=== PATIENT | male | born 1980 | race American Indian/Alaskan Native ===

== ENCOUNTER 2019-08-26 05:54 | Emergency (ER) | payer BC, OTHER ==
[2019-08-26] MEDS ORDERED: Adenosine 6 MG/2 ML SDV IVPUSH ONE ×3 (06:06→06:16)
[2019-08-26] MEDS ORDERED: Adenosine 6 MG/2 ML SDV ONE (06:08)
[2019-08-26] MEDS ORDERED: Sodium Chloride 0.9% 1,000 ML IV SCH (06:09)
[2019-08-26] MEDS ORDERED: Adenosine 12 MG/4 ML SDV ONE ×2 (06:12→06:16)
--- NOTE | 2019-08-26 06:25 | EDM.PDOC ---
ED HPI GENERAL MEDICAL PROBLEM - General Chief Complaint: Cardiovascular Problem Stated Complaint: RAPID HEARTBEAT Time Seen by Provider: 08/26/19 06:06 Source of Information: Reports: Patient History Limitations: Reports: No Limitations - History of Present Illness INITIAL COMMENTS - FREE TEXT/NARRATIVE: This 39 yo male patient reports to the ED due to an increased heartrate. The patient reports his symptoms started at about 2130 last night. The patient reports similar symptoms in the past, but these episodes had been self limiting during previous episodes. The patient reports he has not had to have medications and has not had his heart checked out after these episodes. The patient admits to drinking caffeinated drinks as well as to vaping. The patient denies any recent drug or ETOH use. Onset Date: 08/25/19 Onset Time: 21:30 Duration: Constant Location: Reports: Chest Quality: Reports: Other Severity: Moderate Improves with: Reports: None Worsens with: Reports: None Context: Reports: Other Associated Symptoms: Reports: Other (Rapid heart rate dizziness) Left Anterior Chest Pain Score (Numeric/FACES): 2 - Related Data Allergies Allergy/AdvReac Type Severity Reaction Status Date / Time No Known Allergies Allergy Verified 08/26/19 06:07 Home Meds: Home Meds . [No Known Home Meds] 01/24/15 [History] Social & Family History - Family History Family Medical History: Noncontributory - Tobacco Use Smoking Status *Q: Current Every Day Smoker Years of Tobacco use: 20 Packs/Tins Daily: 0 Second Hand Smoke Exposure: Yes - Caffeine Use Caffeine Use: Reports: Coffee, Energy Drinks, Soda, Tea - Recreational Drug Use Recreational Drug Use: No ED ROS GENERAL - Review of Systems Review Of Systems: ROS reveals no pertinent complaints other than HPI. ED EXAM, GENERAL - Physical Exam Exam: See Below Exam Limited By: No Limitations General Appearance: Alert, WD/WN, Anxious, Moderate Distress Eye Exam: Bilateral Eye: EOMI, Normal Inspection, PERRL Ears: Normal External Exam, Normal Canal, Hearing Grossly Normal, Normal TMs Nose: Normal Inspection, Normal Mucosa, No Blood Throat/Mouth: Normal Inspection, Normal Lips, Normal Teeth, Normal Gums, Normal Oropharynx, Normal Voice, No Airway Compromise Head: Atraumatic, Normocephalic Neck: Normal Inspection, Supple, Non-Tender, Full Range of Motion Respiratory/Chest: No Respiratory Distress, Lungs Clear, Normal Breath Sounds, No Accessory Muscle Use, Chest Non-Tender Cardiovascular: No Edema, No Gallop, No JVD, No Murmur, No Rub, Tachycardia GI/Abdominal: Normal Bowel Sounds, Soft, Non-Tender, No Organomegaly, No Distention, No Abnormal Bruit, No Mass (Male) Exam: Deferred Rectal (Males) Exam: Deferred Back Exam: Normal Inspection, Full Range of Motion, NT Extremities: Normal Inspection, Normal Range of Motion, Non-Tender, Normal Capillary Refill, No Pedal Edema Neurological: Alert, Oriented, CN II-XII Intact, Normal Cognition, Normal Gait, Normal Reflexes, No Motor/Sensory Deficits Psychiatric: Normal Affect, Normal Mood Skin Exam: Warm, Dry, Intact, Normal Color, No Rash Lymphatic: No Adenopathy Course - Vital Signs Last Recorded V/S: Last Vital Signs Temp 36.3 C 08/26/19 06:32 Pulse 95 08/26/19 06:32 Resp 12 08/26/19 06:32 BP 113/63 08/26/19 06:32 Pulse Ox 98 08/26/19 06:32 - Orders/Labs/Meds Orders: Active Orders 24 hr Category Date Time Status EKG Documentation Completion [RC] URGENT Care 08/26/19 06:02 Active EKG Documentation Completion [RC] URGENT Care 08/26/19 06:20 Ordered Chest 1V Frontal [CR] Urgent Exams 08/26/19 06:03 Ordered Sodium Chloride 0.9% [Normal Saline] 1,000 ml Med 08/26/19 06:09 Active IV ASDIRECTED Medication Orders Sodium Chloride (Normal Saline) 1,000 mls @ 999 mls/hr IV ASDIRECTED GINI Last Admin: 08/26/19 06:09 Dose: 999 mls/hr Labs: Laboratory Tests 08/26/19 08/26/19 Range/Units 06:03 06:03 WBC 15.4 H (5.0-10.0) 10^3/uL RBC 5.58 (4.6-6.2) 10^6/uL Hgb 16.4 (14.0-18.0) g/dL Hct 47.7 (40.0-54.0) % MCV 85.5 (80-100) fL MCH 29.4 (27.0-34.0) pg MCHC 34.4 (33.0-35.0) g/dL Plt Count 228 (150-450) 10^3/uL Neut % (Auto) 64.2 (42.2-75.2) % Lymph % (Auto) 25.7 (20.5-50.1) % [place] % (Auto) 6.0 (2-8) % Eos % (Auto) 3.8 H (1.0-3.0) % Baso % (Auto) 0.3 (0.0-1.0) % Sodium 140 (135-145) mmol/L Potassium 4.1 (3.6-5.0) mmol/L Chloride 105 (101-111) mmol/L Carbon Dioxide 24.0 (21.0-31.0) mmol/L Anion Gap 15.1 BUN 19 H (7-18) mg/dL Creatinine 1.2 (0.6-1.3) mg/dL Est Cr Clr Drug Dosing 86.28 mL/min Estimated GFR (MDRD) > 60 BUN/Creatinine Ratio 15.83 Glucose 102 (74-105) mg/dL Calcium 8.7 (8.4-10.2) mg/dl Total Bilirubin 0.7 (0.2-1.0) mg/dL AST 21 (10-42) IU/L ALT 29 (10-60) IU/L Alkaline Phosphatase 64 (42-121) IU/L Troponin I 0.11 H* (0.00-0.02) ng/ml Total Protein 7.0 (6.7-8.2) g/dl Albumin 3.8 (3.2-5.5) g/dl Globulin 3.2 Albumin/Globulin Ratio 1.19 Meds: Medications Generic Name Dose Route Start Last Admin Trade Name Freq PRN Reason Stop Dose Admin Sodium Chloride 1,000 mls @ 999 mls/hr 08/26/19 06:09 08/26/19 06:09 Normal Saline IV 999 mls/hr ASDIRECTED GINI Administration Discontinued Medications Generic Name Dose Route Start Last Admin Trade Name Freq PRN Reason Stop Dose Admin Adenosine 6 mg 08/26/19 06:06 08/26/19 06:09 Adenocard IVPUSH 08/26/19 06:07 6 mg NOW ONE Administration Adenosine Confirm 08/26/19 06:08 08/26/19 06:17 Adenocard Administered 08/26/19 06:09 Not Given Dose 6 mg .ROUTE .STK-MED ONE Adenosine 12 mg 08/26/19 06:12 08/26/19 06:13 Adenocard IVPUSH 08/26/19 06:13 12 mg NOW ONE Administration Adenosine Confirm 08/26/19 06:12 08/26/19 06:17 Adenocard Administered 08/26/19 06:13 Not Given Dose 12 mg .ROUTE .STK-MED ONE Adenosine 12 mg 08/26/19 06:16 08/26/19 06:18 Adenocard IVPUSH 08/26/19 06:17 12 mg NOW ONE Administration Adenosine Confirm 08/26/19 06:16 08/26/19 06:26 Adenocard Administered 08/26/19 06:17 Not Given Dose 12 mg .ROUTE .STK-MED ONE Departure - Departure Time of Disposition: 07:12 Disposition: DC/Tfer to [facility] 02 Reason for Transfer *Q: Other Condition: Fair Clinical Impression: Elevated troponin I level Forms: Interfacility Transfer EMTALA Care Plan Goals: Discussed the patient's history, examination, lab, EKG and treatments with Dr. Sotelo. Dr. Sotelo accepted the patient for continued evaluation and management at [facility] in [place]. The patient will be transported by [facility]. - My Orders Last 24 Hours: My Active Orders 08/26/19 06:02 EKG Documentation Completion [RC] URGENT 08/26/19 06:03 Chest 1V Frontal [CR] Urgent 08/26/19 06:09 Sodium Chloride 0.9% [Normal Saline] 1,000 ml IV ASDIRECTED 08/26/19 06:20 EKG Documentation Completion [RC] URGENT - Assessment/Plan Last 24 Hours: My Active Orders 08/26/19 06:02 EKG Documentation Completion [RC] URGENT 08/26/19 06:03 Chest 1V Frontal [CR] Urgent 08/26/19 06:09 Sodium Chloride 0.9% [Normal Saline] 1,000 ml IV ASDIRECTED 08/26/19 06:20 EKG Documentation Completion [RC] URGENT
[2019-08-26 06:32] LABS: ANION GAP 15.1; CHLORIDE,CL 105 mmol/L (101-111); SODIUM,NA 140 mmol/L (135-145)
[2019-08-26 06:33] VITALS: PULSE 95
[2019-08-26 07:26] VITALS: BP 102/75
== END 2019-08-26 07:25 | disposition left against medical advice (07) ==
LOC: DL.ED 05:54
DX: R79.89 Other specified abnormal findings of blood chemistry (principal); F17.210 Nicotine dependence, cigarettes, uncomplicated
CPT/HCPCS: 36415; 71045; 80053; 84484; 85025; 93005; 96361; 96374; 99285; J0153; J7030

== ENCOUNTER 2020-11-06 08:27 | Emergency (ER) | payer OTHER ==
[2020-11-06 08:52] VITALS: BP 113/84; PULSE 79
[2020-11-06] MEDS ORDERED: Sodium Chloride 0.9% 1,000 ML IV ONE (08:57)
[2020-11-06] MEDS ORDERED: Ondansetron 4 MG/2 ML SDV IV ONE (09:16)
--- NOTE | 2020-11-06 09:21 | EDM.PDOC ---
ED HPI GENERAL MEDICAL PROBLEM - General Chief Complaint: Respiratory Problem Stated Complaint: covid symptoms + in jun. tested+ 1wk Time Seen by Provider: 11/06/20 09:00 Source of Information: Reports: Patient, RN, RN Notes Reviewed History Limitations: Reports: No Limitations - History of Present Illness INITIAL COMMENTS - FREE TEXT/NARRATIVE: Patient is a 40-year-old male who presents to ER with complaint of body aches, fever and chills, nausea, vomiting, diarrhea for the past 1 week. Patient states symptoms began last Saturday. States he began with body aches, progressed throughout the week with fever and chills. The last 2 days he has had nausea, vomiting and diarrhea. States he has been coughing quite a bit, gets muscle spasms in his back with coughing. States he has been coughing up phlegm, yellow in color, but blood-tinged from time to time. States that has been occurring since yesterday. Patient states he did test positive for Covid in June. Sta wander 3 others in his household tested positive for Covid at that time. 1 week ago his tested positive for Covid as well as 3 other children in the house. Patient states he does Juul (vape), has for about 2 years, and does so quite frequently throughout the day. Patient states he has not done this since Saturday, and has been using nicotine lozenges. Patient states he does not drink alcohol, and denies any other past medical health history. Patient states his anxiety has been high the last couple of days with coughing, feeling short of breath with cough, and the blood tinged sputum. States he does not generally have troubles with anxiety. Onset: Gradual Onset Date: 10/30/20 - Related Data Allergies Allergy/AdvReac Type Severity Reaction Status Date / Time No Known Allergies Allergy Verified 11/06/20 08:43 Home Meds: Home Meds . [No Known Home Meds] 01/24/15 [History] Past Medical History - Past Health History Medical/Surgical History: Denies Medical/Surgical History - Infectious Disease History Infectious Disease History: Reports: Novel Coronavirus Social & Family History - Family History Family Medical History: No Pertinent Family History - Tobacco Use Tobacco Use Status *Q: Current Every Day Tobacco User Years of Tobacco use: 20 Packs/Tins Daily: 0.5 Tobacco Use Comment: Hasn't smoked since Sat. - Caffeine Use Caffeine Use: Reports: Coffee, Energy Drinks, Soda, Tea ED ROS GENERAL - Review of Systems Review Of Systems: Comprehensive ROS is negative, except as noted in HPI. ED EXAM, GENERAL - Physical Exam Exam: See Below Exam Limited By: No Limitations General Appearance: Alert, WD/WN, No Apparent Distress Eye Exam: Bilateral Eye: EOMI, Normal Inspection Ears: Normal External Exam, Hearing Grossly Normal Nose: Normal Inspection Throat/Mouth: Normal Inspection, Normal Voice, No Airway Compromise Head: Atraumatic, Normocephalic Neck: Normal Inspection, Supple, Non-Tender, Full Range of Motion Respiratory/Chest: No Respiratory Distress, No Accessory Muscle Use, Chest Non- Tender, Decreased Breath Sounds (right base), Crackles (left base) Cardiovascular: Normal Peripheral Pulses, Regular Rate, Rhythm, No Edema, No Gallop, No JVD, No Murmur, No Rub Peripheral Pulses: 2+: Radial (L), Radial (R) GI/Abdominal: Normal Bowel Sounds, Soft, Non-Tender, No Organomegaly, No Di stention (Male) Exam: Deferred Rectal (Males) Exam: Deferred Back Exam: Normal Inspection, Full Range of Motion, NT Extremities: Normal Inspection, Normal Range of Motion, Non-Tender, Normal Capillary Refill, No Pedal Edema Neurological: Alert, Oriented, CN II-XII Intact, Normal Cognition, Normal Gait, Normal Reflexes, No Motor/Sensory Deficits Psychiatric: Normal Affect, Normal Mood, Anxious Skin Exam: Warm, Dry, Intact, Normal Color, No Rash Lymphatic: No Adenopathy Course - Vital Signs Last Recorded V/S: Last Vital Signs Temp 99.3 F 11/06/20 08:37 Pulse 79 11/06/20 08:37 Resp 20 11/06/20 08:37 BP 113/84 11/06/20 08:37 Pulse Ox 97 11/06/20 08:37 - Orders/Labs/Meds Orders: Active Orders 24 hr Category Date Time Status Isolation [COMM] Routine Oth 11/06/20 08:57 Active Labs: Laboratory Tests 11/06/20 11/06/20 11/06/20 Range/Units 09:04 09:23 09:23 WBC 4.8 L (5.0-10.0) 10^3/uL RBC 5.00 (4.6-6.2) 10^6/uL Hgb 14.0 D (14.0-18.0) g/dL Hct 40.9 (40.0-54.0) % MCV 81.8 D (80-100) fL MCH 28.0 (27.0-34.0) pg MCHC 34.2 (33.0-35.0) g/dL Plt Count 169 (150-450) 10^3/uL Neut % (Auto) 84.7 H (42.2-75.2) % Lymph % (Auto) 11.6 L (20.5-50.1) % [place] % (Auto) 2.9 (2-8) % Eos % (Auto) 0.6 L (1.0-3.0) % Baso % (Auto) 0.2 (0.0-1.0) % Sodium 133 L (136-145) mmol/L Potassium 3.6 (3.5-5.1) mmol/L Chloride 101 (98-107) mmol/L Carbon Dioxide 18 L (21-32) mmol/L Anion Gap 17.6 H (7-13) mEq/L BUN 17 (7-18) mg/dL Creatinine 1.23 (0.70-1.30) mg/dL Est Cr Clr Drug Dosing 83.33 mL/min Estimated GFR (MDRD) > 60 BUN/Creatinine Ratio 13.8 (No establ ref range) Glucose 114 H (74-99) mg/dL Calcium 8.3 L (8.5-10.1) mg/dL Total Bilirubin 1.0 (0.2-1.0) mg/dL AST 37 (15-37) U/L ALT 28 (16-63) U/L Alkaline Phosphatase 50 (46-116) U/L C-Reactive Protein (0.0-0.9) mg/dL Total Protein 6.9 (6.4-8.2) g/dL Albumin 3.1 L (3.4-5.0) g/dL Globulin 3.8 Albumin/Globulin Ratio 0.82 SARS-CoV-2 RNA (FRANKI) Negative (NEGATIVE) 11/06/20 Range/Units 09:23 WBC (5.0-10.0) 10^3/uL RBC (4.6-6.2) 10^6/uL Hgb (14.0-18.0) g/dL Hct (40.0-54.0) % MCV (80-100) fL MCH (27.0-34.0) pg MCHC (33.0-35.0) g/dL Plt Count (150-450) 10^3/uL Neut % (Auto) (42.2-75.2) % Lymph % (Auto) (20.5-50.1) % [place] % (Auto) (2-8) % Eos % (Auto) (1.0-3.0) % Baso % (Auto) (0.0-1.0) % Sodium (136-145) mmol/L Potassium (3.5-5.1) mmol/L Chloride (98-107) mmol/L Carbon Dioxide (21-32) mmol/L Anion Gap (7-13) mEq/L BUN (7-18) mg/dL Creatinine (0.70-1.30) mg/dL Est Cr Clr Drug Dosing mL/min Estimated GFR (MDRD) BUN/Creatinine Ratio (No establ ref range) Glucose (74-99) mg/dL Calcium (8.5-10.1) mg/dL Total Bilirubin (0.2-1.0) mg/dL AST (15-37) U/L ALT (16-63) U/L Alkaline Phosphatase (46-116) U/L C-Reactive Protein 9.0 H (0.0-0.9) mg/dL Total Protein (6.4-8.2) g/dL Albumin (3.4-5.0) g/dL Globulin Albumin/Globulin Ratio SARS-CoV-2 RNA (FRANKI) (NEGATIVE) Meds: Medications Discontinued Medications Generic Name Dose Route Start Last Admin Trade Name Freq PRN Reason Stop Dose Admin Sodium Chloride 1,000 mls @ 999 mls/hr 11/06/20 08:57 11/06/20 09:25 Normal Saline IV 11/06/20 09:57 999 mls/hr .BOLUS ONE Administration Ceftriaxone Sodium 1 gm/ 50 mls @ 100 mls/hr 11/06/20 10:14 11/06/20 10:35 Sodium Chloride IV 11/06/20 10:43 100 mls/hr ONETIME ONE Administration Methylprednisolone Sodium Succinate 125 mg 11/06/20 10:14 11/06/20 10:32 Solu-Medrol IVPUSH 11/06/20 10:15 125 mg ONETIME ONE Administration Ondansetron HCl 4 mg 11/06/20 09:16 11/06/20 09:26 Zofran IV 11/06/20 09:17 4 mg ONETIME ONE Administration - Radiology Interpretation Free Text/Narrative:: Chest xray: PROCEDURE INFORMATION: Exam: XR Chest, 1 View Exam date and time: 11/06/2020 9:35 AM Age: 40 years old Clinical indication: Other: Chest pain TECHNIQUE: Imaging protocol: XR of the chest Views: 1 view. COMPARISON: No relevant prior studies available. FINDINGS: Lungs: Diffuse bilateral interstitial prominence consistent with infiltrate. Pleural space: Unremarkable. No pleural effusion. No pneumothorax. Heart/Mediastinum: Unremarkable. No cardiomegaly. Bones/joints: Unremarkable. IMPRESSION: Diffuse bilateral interstitial infiltrate. Thank you for allowing us to participate in the care of your patient. Dictated and Authenticated by: Елена Tierney MD 11/06/2020 9:44 AM Central Time ([place] & [place]) See rad report Departure - Departure Time of Disposition: 11:00 Disposition: Home, Self-Care 01 Condition: Good Clinical Impression: Pneumonia Qualifiers: Pneumonia type: due to unspecified organism Laterality: bilateral Lung location: lower lobe of lung Qualified Code(s): J18.9 - Pneumonia, unspecified organism - Discharge Information *PRESCRIPTION DRUG MONITORING PROGRAM REVIEWED*: No *COPY OF PRESCRIPTION DRUG MONITORING REPORT IN PATIENT ASAF: No Instructions: Steps to Quit Smoking, [id number], Upper Respiratory Infection, Adult, [id number], Community-Acquired Pneumonia, Adult, [id number] Forms: ED Department Discharge Additional Instructions: Stop vaping Rx: Albuterol nebulizers, azithromycin, prednisone Drink plenty of water/Pedialyte May use Tylenol and/or ibuprofen as directed for pain/fever Follow-up with your primary care provider next week if no improvement If worsening of symptoms return to the ER Sepsis Event Note (ED) - Evaluation Sepsis Screening Result: No Definite Risk - Focused Exam Vital Signs: Vital Signs Temp Pulse Resp BP Pulse Ox 11/06/20 08:37 99.3 F 79 20 113/84 97 - My Orders Last 24 Hours: My Active Orders 11/06/20 08:57 Isolation [COMM] Routine - Assessment/Plan Last 24 Hours: My Active Orders 11/06/20 08:57 Isolation [COMM] Routine
--- NOTE | 2020-11-06 09:44 | CR ---
PROCEDURE INFORMATION: Exam: XR Chest, 1 View Exam date and time: 11/06/2020 9:35 AM Age: 40 years old Clinical indication: Other: Chest pain TECHNIQUE: Imaging protocol: XR of the chest Views: 1 view. COMPARISON: No relevant prior studies available. FINDINGS: Lungs: Diffuse bilateral interstitial prominence consistent with infiltrate. Pleural space: Unremarkable. No pleural effusion. No pneumothorax. Heart/Mediastinum: Unremarkable. No cardiomegaly. Bones/joints: Unremarkable. IMPRESSION: Diffuse bilateral interstitial infiltrate.
[2020-11-06 09:52] LABS: ANION GAP 17.6 mEq/L (7-13); CHLORIDE,CL 101 mmol/L (98-107); SODIUM,NA 133 mmol/L (136-145)
[2020-11-06] MEDS ORDERED: cefTRIAXone 1 GM in Sodium Chloride 0.9% 50 ML IV ONE (10:14)
[2020-11-06] MEDS ORDERED: methylPREDNISolone Sodium Succinate 125 MG/2 ML SDV IVPUSH ONE (10:14)
== END 2020-11-06 11:06 | disposition home or self-care (01) ==
LOC: DL.ED 08:27
DX: J18.9 Pneumonia, unspecified organism (principal); Z20.828 Contact with and (suspected) exposure to other viral communicable diseases
CPT/HCPCS: 36415; 71045; 80053; 85025; 86140; 87635; 87804; 96365; 96375; 99284; J0696; J2405; J2930; J7030; J7050; 99283; U0002

== ENCOUNTER 2020-11-14 14:29 | Emergency (ER) | payer OTHER ==
[2020-11-14] MEDS ORDERED: Adenosine 6 MG/2 ML SDV ONE (14:53)
[2020-11-14] MEDS ORDERED: Adenosine 12 MG/4 ML SDV ONE (14:58)
[2020-11-14] MEDS ORDERED: Diltiazem 25 MG/5 ML SDV IVPUSH ONE (15:02)
[2020-11-14] MEDS ORDERED: LORazepam 2 MG/ML SDV IVPUSH ONE (15:09)
[2020-11-14] MEDS ORDERED: Diltiazem 125 MG in Sodium Chloride 0.9% 125 ML IV ONE (15:09)
[2020-11-14 15:16] LABS: CHLORIDE,CL 103 mmol/L (98-107); SODIUM,NA 136 mmol/L (136-145)
[2020-11-14] MEDS ORDERED: Adenosine 6 MG/2 ML SDV IVPUSH ONE ×2 (15:19)
--- NOTE | 2020-11-14 15:21 | EDM.PDOC ---
ED HPI GENERAL MEDICAL PROBLEM - General Chief Complaint: General Stated Complaint: LEFT CALF POSSIBLE CLOUGHT Time Seen by Provider: 11/14/20 14:50 Source of Information: Reports: Patient, Provider History Limitations: Reports: No Limitations - History of Present Illness INITIAL COMMENTS - FREE TEXT/NARRATIVE: This 40 yo male patient was sent to the ED by Dr. Zamudio due to left leg swelling, coughing up phlegm with blood in it and a rapid heart rate. This patient has been seen in the ED with Kiko Kramer with RVR (1 year ago), COVID (3 months ago) and pneumonia (1 week ago). The patient reports he started to notice some swelling in his left leg on Saturday with increased pain with ambulation. The patient reports during his previous episode of a rapid heart rate, he was sent to [facility] in [place] and did have an ablation. The patient reports he was supposed to go back for a follow-up, but has not made another appointment due to COVID. The patient reports he has had episodes of elevated heart rate, but they normally resolve after her sits down and relaxes. Onset Date: 11/12/20 Duration: Constant, Getting Worse Location: Reports: Chest, Lower Extremity, Left Quality: Reports: Dull, Pressure Severity: Moderate Improves with: Reports: None Worsens with: Reports: None Context: Reports: Other Associated Symptoms: Reports: cough w sputum Left Leg Pain Score (Numeric/FACES): 2 - Related Data Allergies Allergy/AdvReac Type Severity Reaction Status Date / Time No Known Allergies Allergy Verified 11/14/20 15:08 Home Meds: Home Meds . [No Known Home Meds] 01/24/15 [History] Past Medical History - Past Health History Medical/Surgical History: Denies Medical/Surgical History - Infectious Disease History Infectious Disease History: Reports: Novel Coronavirus Social & Family History - Family History Family Medical History: No Pertinent Family History - Caffeine Use Caffeine Use: Reports: Coffee, Energy Drinks, Soda, Tea ED ROS GENERAL - Review of Systems Review Of Systems: Comprehensive ROS is negative, except as noted in HPI. ED EXAM, GENERAL - Physical Exam Exam: See Below Exam Limited By: No Limitations General Appearance: Alert, WD/WN, No Apparent Distress Eye Exam: Bilateral Eye: EOMI, Normal Inspection, PERRL Ears: Normal External Exam, Normal Canal, Hearing Grossly Normal, Normal TMs Nose: Normal Inspection, Normal Mucosa, No Blood Throat/Mouth: Normal Inspection, Normal Lips, Normal Teeth, Normal Gums, Normal Oropharynx, Normal Voice, No Airway Compromise Head: Atraumatic, Normocephalic Neck: Normal Inspection, Supple, Non-Tender, Full Range of Motion Respiratory/Chest: No Respiratory Distress, Lungs Clear, Normal Breath Sounds, No Accessory Muscle Use, Chest Non-Tender Cardiovascular: Normal Peripheral Pulses, Regular Rate, Rhythm, No Edema, No Gallop, No JVD, No Murmur, No Rub GI/Abdominal: Normal Bowel Sounds, Soft, Non-Tender, No Organomegaly, No Distention, No Abnormal Bruit, No Mass (Male) Exam: Deferred Rectal (Males) Exam: Deferred Back Exam: Normal Inspection, Full Range of Motion, NT Extremities: Leg Pain (left leg swelling and pain) Neurological: Alert, Oriented, CN II-XII Intact, Normal Cognition, Normal Gait, Normal Reflexes, No Motor/Sensory Deficits Psychiatric: Anxious Skin Exam: Warm, Dry, Intact, Normal Color, No Rash Lymphatic: No Adenopathy Course - Vital Signs Last Recorded V/S: Last Vital Signs Temp 35.8 C L 11/14/20 15:05 Pulse 150 H 11/14/20 17:17 Resp 20 11/14/20 17:17 BP 108/78 11/14/20 17:17 Pulse Ox 98 11/14/20 17:17 - Orders/Labs/Meds Orders: Active Orders 24 hr Category Date Time Status EKG Documentation Completion [RC] STAT Care 11/14/20 14:34 Active Diltiazem 125 mg Med 11/14/20 15:09 Active Sodium Chloride 0.9% [Normal Saline] 125 ml IV ASDIRECTED Heparin Sodium/0.45% NaCl [Heparin 25,000 Units in 1/2 Med 11/14/20 15:26 Active NS 500 ML] 25,000 units in 500 ml IV ONETIME Medication Orders Diltiazem HCl 125 mg/ Sodium (Chloride) 150 mls @ 5 mls/hr IV ASDIRECTED ONE Stop: 11/15/20 21:08 Last Admin: 11/14/20 15:20 Dose: 5 mls/hr Documented by: KATHERINE Heparin Sodium/Sodium Chloride (Heparin 25,000 Units In 1/2 Ns 500 Ml) 25,000 units in 500 mls @ 28.195 mls/hr IV ONETIME ONE Stop: 11/15/20 09:10 Last Admin: 11/14/20 15:56 Dose: 12 units/kg/hr, 28.195 mls/hr Documented by: KATHERINE Cosigned by: DAXA Labs: Laboratory Tests 11/14/20 11/14/20 11/14/20 Range/Units 14:45 14:45 14:45 WBC 12.2 H (5.0-10.0) 10^3/uL RBC 5.13 (4.6-6.2) 10^6/uL Hgb 14.1 (14.0-18.0) g/dL Hct 42.7 (40.0-54.0) % MCV 83.2 (80-100) fL MCH 27.5 (27.0-34.0) pg MCHC 33.0 (33.0-35.0) g/dL Plt Count 234 (150-450) 10^3/uL Neut % (Auto) 83.5 H (42.2-75.2) % Lymph % (Auto) 9.7 L (20.5-50.1) % [place] % (Auto) 5.8 (2-8) % Eos % (Auto) 0.8 L (1.0-3.0) % Baso % (Auto) 0.2 (0.0-1.0) % Add Manual Diff Yes Neutrophils % (Manual) 77 H (42-75) % Band Neutrophils % 7 % Lymphocytes % (Manual) 12 L (20-50) % Monocytes % (Manual) 1 L (2-8) % Eosinophils % (Manual) 1 (1-3) % Basophils % (Manual) 1 Blast Cells % 1 D-Dimer, Quantitative 4400 H (0-400) ng/mL Sodium 136 (136-145) mmol/L Potassium 4.0 (3.5-5.1) mmol/L Chloride 103 (98-107) mmol/L Carbon Dioxide 23 (21-32) mmol/L Anion Gap 14.0 H (7-13) mEq/L BUN 21 H (7-18) mg/dL Creatinine 1.29 (0.70-1.30) mg/dL Est Cr Clr Drug Dosing 79.45 mL/min Estimated GFR (MDRD) > 60 BUN/Creatinine Ratio 16.3 (No establ ref range) Glucose 104 H (74-99) mg/dL Calcium 8.1 L (8.5-10.1) mg/dL Total Bilirubin 1.9 H (0.2-1.0) mg/dL AST 21 (15-37) U/L ALT 30 (16-63) U/L Alkaline Phosphatase 61 (46-116) U/L Troponin I 0.888 H* (0.000-0.056) ng/mL Total Protein 6.7 (6.4-8.2) g/dL Albumin 2.6 L (3.4-5.0) g/dL Globulin 4.1 Albumin/Globulin Ratio 0.63 Meds: Medications Generic Name Dose Route Start Last Admin Trade Name Freq PRN Reason Stop Dose Admin Diltiazem HCl 125 mg/ Sodium 150 mls @ 5 mls/hr 11/14/20 15:09 11/14/20 15:20 Chloride IV 11/15/20 21:08 5 mls/hr ASDIRECTED ONE Administration Heparin Sodium/Sodium Chloride 25,000 units in 500 mls @ 28.195 mls/hr 11/14/20 15:26 11/14/20 15:56 Heparin 25,000 Units In 1/2 Ns 500 Ml IV 11/15/20 09:10 12 units/kg/hr ONETIME ONE 28.195 mls/hr Administration 12 UNITS/KG/HR Discontinued Medications Generic Name Dose Route Start Last Admin Trade Name Freq PRN Reason Stop Dose Admin Adenosine Confirm 11/14/20 14:53 11/14/20 15:28 Adenocard Administered 11/14/20 14:54 Not Given Dose 6 mg .ROUTE .STK-MED ONE Adenosine Confirm 11/14/20 14:58 11/14/20 15:28 Adenocard Administered 11/14/20 14:59 Not Given Dose 12 mg .ROUTE .STK-MED ONE Adenosine 6 mg 11/14/20 15:19 11/14/20 14:53 Adenocard IVPUSH 11/14/20 15:20 6 mg NOW ONE Administration Adenosine 12 mg 11/14/20 15:19 11/14/20 14:58 Adenocard IVPUSH 11/14/20 15:20 12 mg NOW ONE Administration Diltiazem HCl 20 mg 11/14/20 15:02 11/14/20 15:02 Diltiazem IVPUSH 11/14/20 15:03 20 mg ONETIME ONE Administration Heparin Sodium (Porcine) 4,000 units 11/14/20 15:25 11/14/20 15:54 Heparin Sodium IVPUSH 11/14/20 15:26 4,000 units .BOLUS ONE Administration Iopamidol 100 ml 11/14/20 15:46 Isovue-370 (76%) IVPUSH 11/14/20 15:47 ONETIME ONE Lorazepam 1 mg 11/14/20 15:09 11/14/20 15:19 Ativan IVPUSH 11/14/20 15:10 1 mg ONETIME ONE Administration Departure - Departure Time of Disposition: 17:21 Disposition: DC/Tfer to Acute Hospital 02 Condition: Serious Clinical Impression: Elevated troponin, Pulmonary embolism, bilateral, Atrial fibrillation with RVR - Discharge Information *PRESCRIPTION DRUG MONITORING PROGRAM REVIEWED*: Not Applicable *COPY OF PRESCRIPTION DRUG MONITORING REPORT IN PATIENT ASAF: Not Applicable Forms: Interfacility Transfer EMTALA Care Plan Goals: Discussed the patient's history, examination, lab, EKG and CT results with Dr. Cuello. Dr. Cuello accepted the patient for continued evaluation and further management at [facility] in [place]. The patient will be transported by [facility]. Sepsis Event Note (ED) - Evaluation Sepsis Screening Result: No Definite Risk - Focused Exam Vital Signs: Vital Signs Temp Pulse Resp BP Pulse Ox 11/14/20 17:17 150 H 20 108/78 98 11/14/20 15:05 35.8 C L 190 H 22 H 109/88 100 - My Orders Last 24 Hours: My Active Orders 11/14/20 14:34 EKG Documentation Completion [RC] STAT 11/14/20 15:09 Diltiazem 125 mg Sodium Chloride 0.9% [Normal Saline] 125 ml IV ASDIRECTED 11/14/20 15:26 Heparin Sodium/0.45% NaCl [Heparin 25,000 Units in 1/2 NS 500 ML] 25,000 units in 500 ml IV ONETIME - Assessment/Plan Last 24 Hours: My Active Orders 11/14/20 14:34 EKG Documentation Completion [RC] STAT 11/14/20 15:09 Diltiazem 125 mg Sodium Chloride 0.9% [Normal Saline] 125 ml IV ASDIRECTED 11/14/20 15:26 Heparin Sodium/0.45% NaCl [Heparin 25,000 Units in 1/2 NS 500 ML] 25,000 units in 500 ml IV ONETIME
[2020-11-14] MEDS ORDERED: Heparin Sodium 5,000 Units/ML Vial IVPUSH ONE (15:25)
[2020-11-14] MEDS ORDERED: Heparin Sodium/0.45% NaCl 25,000 UNITS/500 ML BAG IV ONE (15:26)
[2020-11-14] MEDS ORDERED: Iopamidol 755 Mg/ML 100 ML Bottle IVPUSH ONE (15:46)
--- NOTE | 2020-11-14 17:01 | CT ---
EXAMINATION: Chest w Cont SEX: Male AGE: 40 years CLINICAL HISTORY: 40-year-old obese male ex-smoker (quit days ago) who is SHORT OF BREATH. Patient was COVID19 positive in August but more recently tested "negative" for Covid and influenza. Serum D dimer 4400. Scan technique: Volume acquisition of data from the chest and abdomen obtained during the intravenous administration 80 cc nonionic Isovue 370 contrast at 5 cc/s via injector (CT PE protocol) while patient was lying supine on the Siemens multislice scanner [place], [place]. All data archived in the PAC storage, reformatting axial/sagittal/coronal and study (lung/mediastinal windows). Interpretation: ABNORMAL. 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 1. Peripheral, multilobar consolidation without air bronchograms, lymphadenopathy or pleural effusions. The two largest areas of pneumonic consolidation involving, respectively, the right upper and right lower lobes. 2. *Filling defects (thrombus) main pulmonary artery circulation (second tier) proximally (right and left). No focal lobar oligemia but right lower lobe thrombus involves infarct extending to the pleural surface laterally. 3. Normal cardiac silhouette. No pulmonary vascular congestion or alveolar edema. No pericardial effusion. 4. Normal caliber thoracic aorta. Dorsal spine unremarkable. 5. Gallbladder inhomogeneously dense suggesting noncalcified stones. Liver, stomach, spleen, pancreas and adrenal glands anatomically correct i.e. negative.
[2020-11-14 17:18] VITALS: BP 108/78; PULSE 150
== END 2020-11-14 17:51 ==
LOC: DL.ED 14:29
DX: I26.99 Other pulmonary embolism without acute cor pulmonale (principal); I48.91 Unspecified atrial fibrillation; R77.8 Other specified abnormalities of plasma proteins; Z86.19 Personal history of other infectious and parasitic diseases
CPT/HCPCS: 36415; 71260; 80053; 84484; 85025; 85379; 93005; 96365; 96366; 96368; 96375; 99285; J0153; J1644; J2060; J3490; Q9967

== ENCOUNTER 2020-11-23 01:24 | Observation (INO) | payer OTHER ==
[2020-11-23] MEDS ORDERED: Diltiazem 25 MG/5 ML SDV IVPUSH ONE (01:27)
[2020-11-23] MEDS: Diltiazem 125 MG in Sodium Chloride 0.9% 100 ML IV SCH ×2 (01:47→10:07)
--- NOTE | 2020-11-23 01:50 | EDM.PDOC ---
ED HPI GENERAL MEDICAL PROBLEM - General Chief Complaint: Cardiovascular Problem Stated Complaint: AMBULANCE Time Seen by Provider: 11/23/20 01:35 Source of Information: Reports: Patient, EMS History Limitations: Reports: No Limitations - History of Present Illness INITIAL COMMENTS - FREE TEXT/NARRATIVE: ED with c/o difficulty breathing rapid heart rate. Hx DVT on left, bilateral PE A fib with RVR. Tx on 11/14 to [facility], left AMA on tana to spend xmas with kids, stated was feeling better until tonight with increased SOB . Some increased pain to left thigh, felt like stretched muscle. Not currently on medication. Pain with breathing. [place] better with oxygen from EMS. Ablation in 2019 for Afib with RVR. No medications following procedure and has not been on anticoag with exception of during recent hospitalization. Denied drug or alcohol use, Ex smoker, quite 3 weeks ago. denied injury to leg. Prior CoVId in August. Right chest initial pain with breathing at onset, now better after oxygen by EMS. Right Upper Posterior Thoracic Pain Score (Numeric/FACES): 5 - Related Data Allergies Allergy/AdvReac Type Severity Reaction Status Date / Time No Known Allergies Allergy Verified 11/23/20 01:21 Home Meds: Home Meds . [No Known Home Meds] 01/24/15 [History] Past Medical History - Past Health History Medical/Surgical History: Denies Medical/Surgical History Cardiovascular History: Reports: Other (See Below) Other Cardiovascular History: SVT - Infectious Disease History Infectious Disease History: Reports: Novel Coronavirus - Past Surgical History Cardiovascular Surgical History: Reports: Cardiac Ablation Social & Family History - Family History Family Medical History: No Pertinent Family History - Caffeine Use Caffeine Use: Reports: Coffee, Energy Drinks, Soda, Tea ED ROS GENERAL - Review of Systems Review Of Systems: Comprehensive ROS is negative, except as noted in HPI. ED EXAM, GENERAL - Physical Exam Exam: See Below Exam Limited By: No Limitations General Appearance: Alert, Mild Distress Eye Exam: Bilateral Eye: EOMI Ears: Normal External Exam, Hearing Grossly Normal Nose: Normal Inspection Throat/Mouth: Normal Inspection Head: Atraumatic, Normocephalic Neck: Normal Inspection Respiratory/Chest: No Respiratory Distress, Decreased Breath Sounds, Other (productive cough thick yloww dark white phlegm) Cardiovascular: Normal Peripheral Pulses, Irregularly Irregular. No: No Edema (trace) GI/Abdominal: Normal Bowel Sounds Back Exam: Full Range of Motion Neurological: Alert, Oriented, Normal Cognition Psychiatric: Normal Affect Skin Exam: Warm, Dry, Intact Course - Vital Signs Last Recorded V/S: Last Vital Signs Temp 98.7 F 11/23/20 09:13 Pulse 143 H 11/23/20 09:13 Resp 35 H 11/23/20 09:13 BP 102/73 11/23/20 09:13 Pulse Ox 94 L 11/23/20 09:13 - Orders/Labs/Meds Labs: Laboratory Tests 11/23/20 11/23/20 11/23/20 Range/Units 01:32 01:32 01:32 WBC 9.8 (5.0-10.0) 10^3/uL RBC 4.17 L (4.6-6.2) 10^6/uL Hgb 11.3 L D (14.0-18.0) g/dL Hct 34.6 L (40.0-54.0) % MCV 83.0 (80-100) fL MCH 27.1 (27.0-34.0) pg MCHC 32.7 L (33.0-35.0) g/dL Plt Count 267 (150-450) 10^3/uL Neut % (Auto) 78.8 H (42.2-75.2) % Lymph % (Auto) 13.0 L (20.5-50.1) % Person % (Auto) 7.4 (2-8) % Eos % (Auto) 0.5 L (1.0-3.0) % Baso % (Auto) 0.3 (0.0-1.0) % PT 11.8 (9.0-12.0) SEC INR 1.2 (0.9-1.2) APTT (22.0-34.0) SEC D-Dimer, Quantitative (0-400) ng/mL Sodium 134 L (136-145) mmol/L Potassium 3.7 (3.5-5.1) mmol/L Chloride 100 (98-107) mmol/L Carbon Dioxide 21 (21-32) mmol/L Anion Gap 16.7 H (7-13) mEq/L BUN 17 (7-18) mg/dL Creatinine 1.21 (0.70-1.30) mg/dL Est Cr Clr Drug Dosing 84.70 mL/min Estimated GFR (MDRD) > 60 BUN/Creatinine Ratio 14.0 (No establ ref range) Glucose 124 H (74-99) mg/dL Calcium 8.0 L (8.5-10.1) mg/dL Magnesium 2.0 (1.8-2.4) mg/dL Total Bilirubin 1.0 (0.2-1.0) mg/dL AST 27 (15-37) U/L ALT 41 (16-63) U/L Alkaline Phosphatase 68 (46-116) U/L Troponin I 0.060 H* (0.000-0.056) ng/mL B-Natriuretic Peptide 784 H (0-100) pg/ml Total Protein 7.0 (6.4-8.2) g/dL Albumin 2.5 L (3.4-5.0) g/dL Globulin 4.5 Albumin/Globulin Ratio 0.56 11/23/11/23/20 Range/Units 01:32 01:32 WBC (5.0-10.0) 10^3/uL RBC (4.6-6.2) 10^6/uL Hgb (14.0-18.0) g/dL Hct (40.0-54.0) % MCV (80-100) fL MCH (27.0-34.0) pg MCHC (33.0-35.0) g/dL Plt Count (150-450) 10^3/uL Neut % (Auto) (42.2-75.2) % Lymph % (Auto) (20.5-50.1) % Person % (Auto) (2-8) % Eos % (Auto) (1.0-3.0) % Baso % (Auto) (0.0-1.0) % PT (9.0-12.0) SEC INR (0.9-1.2) APTT 25.0 (22.0-34.0) SEC D-Dimer, Quantitative 4690 H (0-400) ng/mL Sodium (136-145) mmol/L Potassium (3.5-5.1) mmol/L Chloride (98-107) mmol/L Carbon Dioxide (21-32) mmol/L Anion Gap (7-13) mEq/L BUN (7-18) mg/dL Creatinine (0.70-1.30) mg/dL Est Cr Clr Drug Dosing mL/min Estimated GFR (MDRD) BUN/Creatinine Ratio (No establ ref range) Glucose (74-99) mg/dL Calcium (8.5-10.1) mg/dL Magnesium (1.8-2.4) mg/dL Total Bilirubin (0.2-1.0) mg/dL AST (15-37) U/L ALT (16-63) U/L Alkaline Phosphatase (46-116) U/L Troponin I (0.000-0.056) ng/mL B-Natriuretic Peptide (0-100) pg/ml Total Protein (6.4-8.2) g/dL Albumin (3.4-5.0) g/dL Globulin Albumin/Globulin Ratio Meds: Medications Discontinued Medications Generic Name Dose Route Start Last Admin Trade Name Freq PRN Reason Stop Dose Admin Acetaminophen 650 mg 11/23/20 04:36 Tylenol PO Q4H PRN Pain (Mild 1-3)/fever Amiodarone HCl 400 mg 11/23/20 05:00 Cordarone PO BID GINI Carvedilol 6.25 mg 11/23/20 18:00 Coreg PO BIDMEALS GINI Carvedilol 6.25 mg 11/23/20 05:00 11/23/20 05:09 Coreg PO 11/23/20 05:01 6.25 mg ONETIME ONE Administration Diltiazem HCl 10 mg 11/23/20 01:27 11/23/20 01:34 Diltiazem IVPUSH 11/23/20 01:28 10 mg ONETIME ONE Administration Furosemide 20 mg 11/24/20 09:00 Lasix IVPUSH DAILY GINI Furosemide 20 mg 11/23/20 04:45 11/23/20 05:08 Lasix IVPUSH 11/23/20 04:46 20 mg ONETIME ONE Administration Heparin Sodium (Porcine) 5,000 units 11/23/20 02:35 11/23/20 02:50 Heparin Sodium SUBCUT 11/23/20 02:36 Not Given ONETIME ONE Heparin Sodium (Porcine) 5,000 units 11/23/20 02:48 11/23/20 02:49 Heparin Sodium IVPUSH 11/23/20 02:49 5,000 units .BOLUS ONE Administration Heparin Sodium (Porcine) 2,500 units 11/23/20 09:35 11/23/20 09:53 Heparin Sodium IVPUSH 11/23/20 09:36 2,500 units .BOLUS ONE Administration Diltiazem HCl 125 mg/ Sodium 125 mls @ 5 mls/hr 11/23/20 01:30 11/23/20 10:07 Chloride IV 15 mg/hr TITRATE GINI 15 mls/hr Administration Protocol 5 MG/HR Heparin Sodium/Sodium Chloride 25,000 units in 500 mls @ 25.546 mls/hr 11/23/20 02:45 11/23/20 09:57 Heparin 25,000 Units In 1/2 Ns 500 Ml IV 0 units/kg/hr TITRATE GINI 0 mls/hr Titration Protocol 10 UNITS/KG/HR Heparin Sodium/Sodium Chloride 25,000 units in 500 mls @ 25.546 mls/hr 11/23/20 05:15 Heparin 25,000 Units In 1/2 Ns 500 Ml IV TITRATE GINI Protocol 10 UNITS/KG/HR Iopamidol 100 ml 11/23/20 02:07 11/23/20 02:59 Isovue-370 (76%) IVPUSH 11/23/20 02:08 83 ml ONETIME ONE Administration Ondansetron HCl 4 mg 11/23/20 04:36 Zofran Odt PO Q4H PRN nausea, able to take PO Potassium Chloride 20 meq 11/23/20 09:00 11/23/20 08:31 Klor-Con 10 PO 20 meq DAILY GINI Administration Sodium Chloride 10 ml 11/23/20 04:36 11/23/20 08:32 Saline Flush FLUSH 10 ml ASDIRECTED PRN Administration Keep Vein Open Warfarin Sodium 1 dose 11/23/20 04:45 Pharmacy To Dose - Warfarin .XX ASDIRECTED GINI Warfarin Sodium 5 mg 11/23/20 14:00 Coumadin PO 11/23/20 14:01 ONETIME ONE Zolpidem Tartrate 5 mg 11/23/20 04:36 Ambien PO BEDTIME PRN Sleep - Re-Assessments/Exams Free Text/Narrative Re-Assessment/Exam: 11/23/20 02:46 [facility], no current bed availablity but likely have opening in am. TC Dr Danish WATKINS Hospitalist. Will admit observation, 11/23/20 02:49 Departure - Departure Time of Disposition: 02:50 Disposition: Refer to Observation Reason for Transfer *Q: Other Condition: Fair Clinical Impression: Pulmonary embolism, bilateral, Atrial fibrillation with RVR, Medical non- compliance Sepsis Event Note (ED) - Evaluation Sepsis Screening Result: No Definite Risk
[2020-11-23 01:58] LABS: ANION GAP 16.7 mEq/L (7-13); CHLORIDE,CL 100 mmol/L (98-107); SODIUM,NA 134 mmol/L (136-145)
[2020-11-23] MEDS ORDERED: Iopamidol 755 Mg/ML 100 ML Bottle IVPUSH ONE (02:07)
--- NOTE | 2020-11-23 02:33 | CR ---
PROCEDURE INFORMATION: Exam: XR Chest, 1 View Exam date and time: 11/23/2020 1:58 AM Age: 40 years old Clinical indication: Other: Tachycardia, HX pe 11/14 TECHNIQUE: Imaging protocol: XR of the chest Views: 1 view. COMPARISON: CT Chest w Cont 11/14/2020 4:02 PM FINDINGS: Lungs: Patchy hazy densities in both lungs as on the recent chest CT scan. Focus of consolidation in the lateral right lung base still present. Interval decrease in the right upper lobe disease. No apparent new consolidation. Pleural space: Still no pneumothorax. No interval large pleural effusion. Heart/Mediastinum: Still no definite cardiomegaly. Bones/joints: No visible acute bony disease. IMPRESSION: Interval improvement in the right upper lobe disease. Patchy disease in both lungs still present. No significant change elsewhere.
[2020-11-23] MEDS ORDERED: Heparin Sodium 5,000 Units/ML Vial SUBCUT ONE (02:35)
[2020-11-23] MEDS ORDERED: Heparin Sodium/0.45% NaCl 25,000 UNITS/500 ML BAG IV SCH ×2 (02:45→05:15)
[2020-11-23] MEDS ORDERED: Heparin Sodium 5,000 Units/ML Vial IVPUSH ONE ×2 (02:48→09:35)
--- NOTE | 2020-11-23 03:27 | CT ---
PROCEDURE INFORMATION: Exam: CT Angiography Chest With Contrast Exam date and time: 11/23/2020 2:17 AM Age: 40 years old Clinical indication: Other: SOB, tachy, prior untreated pe TECHNIQUE: Imaging protocol: Computed tomographic angiography of the chest with intravenous contrast. 3D rendering (Not supervised by radiologist): MIP and/or 3D reconstructed images were created by the technologist. Radiation optimization: All CT scans at this facility use at least one of these dose optimization techniques: automated exposure control; mA and/or kV adjustment per patient size (includes targeted exams where dose is matched to clinical indication); or iterative reconstruction. Contrast material: ISOVUE 370; Contrast volume: 83 ml; Contrast route: INTRAVENOUS (IV); COMPARISON: CT Chest w Cont 11/14/2020 4:02 PM FINDINGS: Pulmonary arteries: Interval appearance of a large thrombus in the right lower lobe segmental artery extending into subsegmental arteries; occlusion of the subsegmental arteries to the superior segment of the right lower lobe by this thrombus. Continued residual filling defects from bilateral pulmonary emboli. Interval new subsegmental embolus in the left lower lobe. Aorta: Still no aortic aneurysm or suggestion of dissection. Other arteries: Two right renal arteries again evident. Continued small replaced right hepatic artery. Lungs: Interval prominent patchy airspace disease in the superior segment of the right lower lobe. Interval haziness and worsening of the probable atelectasis in the inferior right lower lobe. Interval decrease in the haziness around patchy areas of consolidation in the lateral right lower lobe. Interval atelectasis in the left lower lobe and appearance of new densities in the right middle lobe and inferior lingula possibly due to atelectasis and/or consolidation. Interval slight decrease in the amount of patchy density in both upper lobe infiltrates. Pleural space: Interval enlargement of the mild right pleural effusion and development of the minimal to mild left pleural effusion. Heart: Still no RV strain. Continued cardiomegaly. Still no pericardial effusion. Lymph nodes: Continued slight prominence of multiple mediastinal and bilateral hilar nodes. Bones/joints: Old slight compression fractures again evident. Continued slight degeneration of several discs. Soft tissues: Continued body wall edema. IMPRESSION: 1. Interval appearance of a large right lower lobe segmental embolus causing occlusion of the subsegmental arteries to the superior segment of this lobe. New subsegmental embolus in the left lower lobe also evident. Incomplete resolution of the multiple emboli evident on the prior study. Still no RV strain. 2. Interval worsening of the right pleural effusion and development of the left pleural effusion. Continued cardiomegaly. 3. Interval worsening of some of the lung disease bilaterally and slight improvement of other areas as detailed above. Other findings mentioned above.
[2020-11-23] MEDS ORDERED: Sodium Chloride 0.9% 10 ML Syringe FLUSH PRN (04:36)
[2020-11-23] MEDS ORDERED: Zolpidem 5 MG Tab PO PRN (04:36)
[2020-11-23] MEDS ORDERED: Ondansetron 4 MG Tab.DIS PO PRN (04:36)
[2020-11-23] MEDS ORDERED: Acetaminophen 325 MG Tab PO PRN (04:36)
[2020-11-23] MEDS ORDERED: Furosemide 20 MG/2 ML VIAL IVPUSH ONE (04:45)
--- NOTE | 2020-11-23 04:57 | PCM.HP ---
H&P History of Present Illness - General Date of Service: 11/23/20 Admit Problem/Dx: Admission Diagnosis/Problem Admission Diagnosis/Problem Atrial fibrillation with rapid ventricular response Source of Information: Patient, Provider - History of Present Illness Initial Comments - Free Text/Narative: 40-year-old gentleman with a history of paroxysmal atrial fibrillation and prior ablation. he also has a history of cold with pneumonia in June 2020. The patient was recently hospitalized at [facility] between the and 18 of November for pulmonary embolism, A. fib with rapid ventricular rate. he was noted to have an ejection fraction of 25-30% The patient was on amiodarone drip. The patient was seen by electrophysiology who recommended the amiodarone, beta laurel and lisinopril. the patient remained to a cardiac and subsequently signed out AGAINST MEDICAL ADVICE. he was taking no medication in the past few days since discharge. The patient presented to the emergency room on 23 November with shortness of breath. Associated with chest pain. found to have atrial fibrillation with rapid ventricular rate Right Upper Posterior Thoracic Pain Score (Numeric/FACES): 5 - Related Data Allergies/Adverse Reactions: Allergies Allergy/AdvReac Type Severity Reaction Status Date / Time No Known Allergies Allergy Verified 11/23/20 01:21 Home Medications: Home Meds . [No Known Home Meds] 01/24/15 [History] Past Medical History - Past Health History Medical/Surgical History: Denies Medical/Surgical History Cardiovascular History: Reports: Afib, Blood Clots/VTE/DVT Other Cardiovascular History: SVT, current PE Respiratory History: Reports: Other (See Below) Other Respiratory History: sports induced asthma when young - Infectious Disease History Infectious Disease History: Reports: Chicken Pox, Novel Coronavirus - Past Surgical History Cardiovascular Surgical History: Reports: Cardiac Ablation Social & Family History - Family History Family Medical History: No Pertinent Family History Cardiac: Reports: Heart Failure Other Cardiac Family History: both parents of CHF - Tobacco Use Tobacco Use Status *Q: Former Tobacco User Years of Tobacco use: 21 Packs/Tins Daily: 1 Used Tobacco, but Quit: Yes Month/Year Tobacco Last Used: Oct 2020 Second Hand Smoke Exposure: No - Caffeine Use Caffeine Use: Reports: None - Recreational Drug Use Recreational Drug Use: No Recreational Drug Type: Reports: Marijuana/Hashish Recreational Drug Use Frequency: Not Used In Over 6 Months H&P Review of Systems - Review of Systems: Review Of Systems: See Below General: Denies: Fever Pulmonary: Reports: Shortness of Breath, Pleuritic Chest Pain. Denies: Wheezing Cardiovascular: Reports: Chest Pain. Denies: Edema Gastrointestinal: Denies: Abdominal Pain Genitourinary: Denies: Dysuria Musculoskeletal: Reports: Leg Pain Exam - Exam Exam: See Below - Vital Signs Vital Signs: Last Vital Signs Temp 99.1 F 11/23/20 03:45 Pulse 151 H 11/23/20 04:02 Resp 19 11/23/20 04:02 BP 103/79 11/23/20 04:02 Pulse Ox 97 11/23/20 04:36 Weight: 258 lb 14.4 oz - Exam Quality Assessment: No: Supplemental Oxygen General: Alert, Oriented Neck: Supple Lungs: Decreased Breath Sounds, Rales Cardiovascular: Tachycardia GI/Abdominal Exam: Normal Bowel Sounds, Soft, Non-Tender Extremities: No Pedal Edema - Patient Data Lab Results Last 24 hrs: Laboratory Results - last 24 hr 11/23/20 11/23/20 11/23/20 Range/Units 01:32 01:32 01:32 WBC 9.8 (5.0-10.0) 10^3/uL RBC 4.17 L (4.6-6.2) 10^6/uL Hgb 11.3 L D (14.0-18.0) g/dL Hct 34.6 L (40.0-54.0) % MCV 83.0 (80-100) fL MCH 27.1 (27.0-34.0) pg MCHC 32.7 L (33.0-35.0) g/dL Plt Count 267 (150-450) 10^3/uL Neut % (Auto) 78.8 H (42.2-75.2) % Lymph % (Auto) 13.0 L (20.5-50.1) % Ralls % (Auto) 7.4 (2-8) % Eos % (Auto) 0.5 L (1.0-3.0) % Baso % (Auto) 0.3 (0.0-1.0) % PT 11.8 (9.0-12.0) SEC INR 1.2 (0.9-1.2) APTT (22.0-34.0) SEC D-Dimer, Quantitative (0-400) ng/mL Sodium 134 L (136-145) mmol/L Potassium 3.7 (3.5-5.1) mmol/L Chloride 100 (98-107) mmol/L Carbon Dioxide 21 (21-32) mmol/L Anion Gap 16.7 H (7-13) mEq/L BUN 17 (7-18) mg/dL Creatinine 1.21 (0.70-1.30) mg/dL Est Cr Clr Drug Dosing 84.70 mL/min Estimated GFR (MDRD) > 60 BUN/Creatinine Ratio 14.0 (No establ ref range) Glucose 124 H (74-99) mg/dL Calcium 8.0 L (8.5-10.1) mg/dL Magnesium 2.0 (1.8-2.4) mg/dL Total Bilirubin 1.0 (0.2-1.0) mg/dL AST 27 (15-37) U/L ALT 41 (16-63) U/L Alkaline Phosphatase 68 (46-116) U/L Troponin I 0.060 H* (0.000-0.056) ng/mL B-Natriuretic Peptide 784 H (0-100) pg/ml Total Protein 7.0 (6.4-8.2) g/dL Albumin 2.5 L (3.4-5.0) g/dL Globulin 4.5 Albumin/Globulin Ratio 0.56 SARS-CoV-2 RNA (FRANKI) (NEGATIVE) 11/23/20 11/23/20 11/23/20 Range/Units 01:32 01:32 02:46 WBC (5.0-10.0) 10^3/uL RBC (4.6-6.2) 10^6/uL Hgb (14.0-18.0) g/dL Hct (40.0-54.0) % MCV (80-100) fL MCH (27.0-34.0) pg MCHC (33.0-35.0) g/dL Plt Count (150-450) 10^3/uL Neut % (Auto) (42.2-75.2) % Lymph % (Auto) (20.5-50.1) % Ralls % (Auto) (2-8) % Eos % (Auto) (1.0-3.0) % Baso % (Auto) (0.0-1.0) % PT (9.0-12.0) SEC INR (0.9-1.2) APTT 25.0 (22.0-34.0) SEC D-Dimer, Quantitative 4690 H (0-400) ng/mL Sodium (136-145) mmol/L Potassium (3.5-5.1) mmol/L Chloride (98-107) mmol/L Carbon Dioxide (21-32) mmol/L Anion Gap (7-13) mEq/L BUN (7-18) mg/dL Creatinine (0.70-1.30) mg/dL Est Cr Clr Drug Dosing mL/min Estimated GFR (MDRD) BUN/Creatinine Ratio (No establ ref range) Glucose (74-99) mg/dL Calcium (8.5-10.1) mg/dL Magnesium (1.8-2.4) mg/dL Total Bilirubin (0.2-1.0) mg/dL AST (15-37) U/L ALT (16-63) U/L Alkaline Phosphatase (46-116) U/L Troponin I (0.000-0.056) ng/mL B-Natriuretic Peptide (0-100) pg/ml Total Protein (6.4-8.2) g/dL Albumin (3.4-5.0) g/dL Globulin Albumin/Globulin Ratio SARS-CoV-2 RNA (FRANKI) Negative (NEGATIVE) Result Diagrams: 11/23/20 01:32 11/23/20 01:32 - Problem List (1) Acute systolic (congestive) heart failure SNOMED Code(s): 047099623, 431068103 ICD Code: I50.21 - ACUTE SYSTOLIC (CONGESTIVE) HEART FAILURE Status: Acute Current Visit: Yes (2) Acute pulmonary embolism SNOMED Code(s): 748134729 ICD Code: I26.99 - OTHER PULMONARY EMBOLISM WITHOUT ACUTE COR PULMONALE Status: Acute Current Visit: Yes (3) Atrial fibrillation with RVR SNOMED Code(s): 742571507589441 ICD Code: I48.91 - UNSPECIFIED ATRIAL FIBRILLATION Status: Acute Current Visit: No (4) Elevated troponin I level SNOMED Code(s): 762968613 ICD Code: R79.89 - OTHER SPECIFIED ABNORMAL FINDINGS OF BLOOD CHEMISTRY Status: Acute Current Visit: No (5) Pulmonary embolism, bilateral SNOMED Code(s): 53063355 ICD Code: I26.99 - OTHER PULMONARY EMBOLISM WITHOUT ACUTE COR PULMONALE Status: Acute Current Visit: No Problem List Initiated/Reviewed/Updated: Yes Orders Last 24hrs: Active Orders 24 hr Category Date Time Status Admission Diagnosis [ADT] Stat ADT 11/23/20 02:38 Ordered Admission Status [Patient Status] [ADT] Routine ADT 11/23/20 02:38 Active EKG Documentation Completion [RC] URGENT Care 11/23/20 01:15 Active Oxygen Therapy [RC] PRN Care 11/23/20 04:36 Ordered Peripheral IV Care [RC] . DIRECTED Care 11/23/20 04:38 Ordered Up With Assistance [RC] ASDIRECTED Care 11/23/20 04:36 Ordered VTE/DVT Education [RC] PER UNIT ROUTINE Care 11/23/20 04:36 Ordered Vital Signs [RC] Q4H Care 11/23/20 04:36 Ordered Regular Diet [DIET] Diet 11/23/20 Breakfast Ordered Venous Doppler Lwr Ext Bi [US] Routine Exams 11/23/20 04:44 Ordered BASIC METABOLIC PANEL,BMP [CHEM] AM Lab 11/24/20 05:11 Ordered CBC WITH AUTO DIFF [HEME] AM Lab 11/24/20 05:11 Ordered INR,PT,PROTHROMBIN TIME [COAG] DAILY Lab 11/25/20 04:45 Ordered INR,PT,PROTHROMBIN TIME [COAG] DAILY Lab 11/26/20 04:45 Ordered INR,PT,PROTHROMBIN TIME [COAG] DAILY Lab 11/27/20 04:45 Ordered INR,PT,PROTHROMBIN TIME [COAG] DAILY Lab 11/23/20 04:45 Ordered INR,PT,PROTHROMBIN TIME [COAG] DAILY Lab 11/24/20 04:45 Ordered PTT,PARTIAL THROMBOPLSTIN TIME [COAG] Q6H Lab 11/23/20 07:00 Ordered PTT,PARTIAL THROMBOPLSTIN TIME [COAG] Q6H Lab 11/23/20 13:00 Ordered PTT,PARTIAL THROMBOPLSTIN TIME [COAG] Q6H Lab 11/23/20 19:00 Ordered PTT,PARTIAL THROMBOPLSTIN TIME [COAG] Q6H Lab 11/24/20 01:00 Ordered PTT,PARTIAL THROMBOPLSTIN TIME [COAG] Q6H Lab 11/24/20 07:00 Ordered TROPONIN I [CHEM] Timed Lab 11/23/20 09:00 Ordered Acetaminophen [TylenoL] Med 11/23/20 04:36 Ordered 650 mg PO Q4H PRN Diltiazem 125 mg Med 11/23/20 01:30 Active Sodium Chloride 0.9% [Normal Saline] 100 ml IV TITRATE Furosemide [Lasix] Med 11/23/20 04:45 Ordered 20 mg IVPUSH DAILY Heparin Sodium/0.45% NaCl [Heparin 25,000 Units in 1/2 Med 11/23/20 02:45 Active NS 500 ML] 25,000 units in 500 ml IV TITRATE Ondansetron [Zofran ODT] Med 11/23/20 04:36 Ordered 4 mg PO Q4H PRN Pharmacy to Dose - Warfarin Med 11/23/20 04:45 Ordered 1 dose .XX ASDIRECTED Sodium Chloride 0.9% [Saline Flush] Med 11/23/20 04:36 Ordered 10 ml FLUSH ASDIRECTED PRN Zolpidem [Ambien] Med 11/23/20 04:36 Ordered 5 mg PO BEDTIME PRN carvediloL [Coreg] Med 11/23/20 05:00 Ordered 6.25 mg PO BIDMEALS carvediloL [Coreg] Med 11/23/20 05:00 Once 6.25 mg PO ONETIME ONE Peripheral IV Insertion Adult [OM.PC] Routine Oth 11/23/20 04:36 Ordered Saline Lock Insert [OM.PC] Routine Oth 11/23/20 04:36 Ordered Resuscitation Status Routine Resus Stat 11/23/20 04:36 Ordered Medication Orders Acetaminophen (Tylenol) 650 mg PO Q4H PRN PRN Reason: Pain (Mild 1-3)/fever Carvedilol (Coreg) 6.25 mg PO BIDMEALS GINI Carvedilol (Coreg) 6.25 mg PO ONETIME ONE Stop: 11/23/20 05:01 Furosemide (Lasix) 20 mg IVPUSH DAILY GINI Diltiazem HCl 125 mg/ Sodium (Chloride) 125 mls @ 5 mls/hr IV TITRATE GINI; Protocol Last Titration: 11/23/20 04:18 Dose: 15 mg/hr, 15 mls/hr Documented by: Titration: 11/23/20 02:48 Dose: 12.5 mg/hr, 12.5 mls/hr Documented by: Titration: 11/23/20 02:19 Dose: 10 mg/hr, 10 mls/hr Documented by: Titration: 11/23/20 02:07 Dose: 7.5 mg/hr, 7.5 mls/hr Documented by: Admin: 11/23/20 01:47 Dose: 5 mg/hr, 5 mls/hr Documented by: TIARA Heparin Sodium/Sodium Chloride (Heparin 25,000 Units In 1/2 Ns 500 Ml) 25,000 units in 500 mls @ 45.984 mls/hr IV TITRATE GINI; Protocol Last Admin: 11/23/20 02:48 Dose: 18 units/kg/hr, 45.984 mls/hr Documented by: JOSE Cosigned by: TIARA Ondansetron HCl (Zofran Odt) 4 mg PO Q4H PRN PRN Reason: nausea, able to take PO Sodium Chloride (Saline Flush) 10 ml FLUSH ASDIRECTED PRN PRN Reason: Keep Vein Open Warfarin Sodium (Pharmacy To Dose - Warfarin) 1 dose .XX ASDIRECTED [facility] Zolpidem Tartrate (Ambien) 5 mg PO BEDTIME PRN PRN Reason: Sleep Assessment/Plan Comment:: 40-year-old gentleman with a history of paroxysmal atrial fibrillation and prior ablation. he also has a history of cold with pneumonia in June 2020. The patient was recently hospitalized at [facility] between the and 18 of November for pulmonary embolism, A. fib with rapid ventricular rate. he was noted to have an ejection fraction of 25-30% The patient was on amiodarone drip. The patient was seen by electrophysiology who recommended the amiodarone, beta laurel and lisinopril. the patient remained to a cardiac and subsequently signed out AGAINST MEDICAL ADVICE. he was taking no medication in the past few days since discharge. The patient presented to the emergency room on 23 November with shortness of breath. Associated with chest pain. 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 Will obtain lower extremity ultrasound to evaluate for DVT He has a history of poor medical follow-up, likely not an ideal candidate for Coumadin If remains stable might be better treated with NOACs Atrial fibrillation, paroxysmal, with rapid ventricular rate With pulmonary embolism and RV strain rate control will be likely difficult Started the patient on Cardizem drip We will start Coreg given the LV dysfunction Consider adding amiodarone if rate is not well controlled monitor on tele Acute systolic congestive heart failure with ejection fraction 25-30% with bilateral pleural effusion noted on CT chest Cardiomyopathy might relate to PE, A. fib, covid infection eventually the patient might need ischemic workup with angiogram Will control heart rate If blood pressure remains good start SAMI inhibitor Start the patient on Lasix follow electrolytes and renal function elevated troponin Likely secondary to pulmonary embolism, RV strain we will repeat in 6 hours Obesity Weight loss counseling
[2020-11-23] MEDS ORDERED: Carvedilol 6.25 MG Tab PO ONE (05:00)
[2020-11-23] MEDS ORDERED: Amiodarone 200 MG Tab PO SCH (05:00)
[2020-11-23] MEDS ORDERED: Potassium Chloride 10 MEQ Tab.ER PO SCH (09:00)
[2020-11-23 09:14] VITALS: BP 102/73; PULSE 143
--- NOTE | 2020-11-23 10:18 | DISCH ---
FINAL DIAGNOSES: 1. Acute pulmonary embolism. 2. Atrial fibrillation with rapid ventricular response. 3. Acute systolic congestive heart failure. 4. Elevated troponin. BRIEF HISTORY OF PRESENT ILLNESS: The patient is a 40-year-old male with a history of recent paroxysmal atrial fibrillation and prior ablation and recent hospitalization at [facility] between 11/14 and 11/18 for acute pulmonary embolism and atrial fibrillation with rapid ventricular response, who signed out against medical advice on 11/18, who was again admitted today because of chest pain and shortness of breath with new acute pulmonary embolism and atrial fibrillation with rapid ventricular response. PERTINENT LABORATORY, X-RAY, AND OTHER TESTS: CBC: WBC is 9.8, hemoglobin is 11.3, hematocrit is 34.6, and platelets are 267. Pro time is 11.8, and INR is 1.2. Comp panel: Sodium is 134, anion gap of 16.7, and glucose is 124; the rest of the panel is unremarkable. Troponin is 0.060, and BNP is 784. SARS- COVID is negative. CAT scan of the chest is remarkable for acute bilateral pulmonary embolism, which is new. There is a large right lower lobe segmental embolus causing occlusion of the subsegmental arteries to the superior segment of this lobe and a new subsequent embolus in the left lower lobe. HOSPITAL COURSE: The patient was admitted to the telemetry floor. The patient was started on heparin drip as well as Cardizem drip. The patient remained in atrial fibrillation with rapid ventricular response. Because of the patient's blood pressure, which is running on the low side, Cardizem drip cannot be increased, and because of this, the patient was transferred to [facility] in [place] for evaluation and management. Dr. Peng accepted the patient. CONDITION ON DISCHARGE: Stable. [facility] /[id number]
--- NOTE | 2020-11-23 10:18 | PN ---
DATE: 11/23/2020 SUBJECTIVE: The patient is a 40-year-old male who was admitted with acute pulmonary embolism and atrial fibrillation with rapid ventricular response. The patient this morning still complaining of chest soreness with deep inspiration, and the patient's telemetry is still showing atrial fibrillation with rapid ventricular response. OBJECTIVE: Vital Signs: Blood pressure is 95/74, pulse of 144, respirations of 35, temperature of 98.8, saturation is 96% on 1 L per nasal cannula. Heart: Tachycardic. Lungs: Equal bilaterally. No significant crackles. No wheezing. Abdomen: Soft, nontender. Bowel sounds positive. Extremities: Remarkable for the SERAFIN hose stocking on the left leg. MEDICATIONS: Reviewed. We will continue with the Cardizem drip as well as the heparin drip. ASSESSMENT AND PLAN: I did speak with Dr. Peng, who is the hospitalist in [facility] for possible transfer and he willingly accepted the patient for transfer. CONDITION ON TRANSFER: Stable. [facility] /[id number]
[2020-11-23] MEDS ORDERED: Warfarin 5 MG Tab PO ONE (14:00)
[2020-11-23] MEDS ORDERED: Carvedilol 6.25 MG Tab PO SCH (18:00)
[2020-11-24] MEDS ORDERED: Furosemide 20 MG/2 ML VIAL IVPUSH SCH (09:00)
== END 2020-11-23 10:07 ==
LOC: DL.ED 01:24 → DL.MS 02:38
PROVIDERS: ADMIT Internal Medicine; ATTEND Internal Medicine
DX: I26.99 Other pulmonary embolism without acute cor pulmonale (principal); I50.21 Acute systolic (congestive) heart failure; R79.89 Other specified abnormal findings of blood chemistry; Z20.828 Contact with and (suspected) exposure to other viral communicable diseases; I48.0 Paroxysmal atrial fibrillation; Z87.891 Personal history of nicotine dependence; Z86.718 Personal history of other venous thrombosis and embolism; E66.9 Obesity, unspecified; Z68.36 Body mass index [BMI] 36.0-36.9, adult
CPT/HCPCS: 36415; 71045; 71275; 80053; 83735; 83880; 84484; 85025; 85379; 85610; 85730; 87635; 93005; 96365; 96366; 96368; 96375; 96376; 99285; A9270; G0378; J1644; J1940; J3490; Q9967; 99236; U0002

== ENCOUNTER 2022-11-20 17:55 | Emergency (ER) | payer OTHER ==
[2022-11-20 22:15] LABS: ANION GAP 15.2 mEq/L (7-13)
[2022-11-20] MEDS ORDERED: Iopamidol 612 MG/ML 100 ML Bottle IVPUSH ONE (22:49)
[2022-11-20 22:53] LABS: AMPHETAMINES,URINE NEGATIVE (NEGATIVE); BARBITURATES,URINE NEGATIVE (NEGATIVE); BENZODIAZEPINE,URINE NEGATIVE (NEGATIVE); MDMA (ECSTASY), URINE NEGATIVE (NEGATIVE); METHADONE,URINE NEGATIVE (NEGATIVE); METHAMPHETAMINES,URINE NEGATIVE (NEGATIVE); OPIATES,URINE NEGATIVE (NEGATIVE); OXYCODONE,URINE NEGATIVE (NEGATIVE); PHENCYCLIDINE,URINE NEGATIVE (NEGATIVE); TCA,URINE NEGATIVE (NEGATIVE)
[2022-11-21] MEDS ORDERED: Ondansetron 4 MG/2 ML SDV IVPUSH ONE
[2022-11-21] MEDS ORDERED: HYDROmorphone 0.5 MG/0.5 ML Syringe IVPUSH ONE
[2022-11-21 01:00] VITALS: BP 136/86; PULSE 97
[2022-11-21 02:09] LABS: CORONAVIRUS COVID-19 NAA NEGATIVE (NEGATIVE)
== END 2022-11-21 01:38 ==
LOC: DL.ED 17:55
DX: K35.30 Acute appendicitis with localized peritonitis, without perforation or gangrene (principal); Z79.01 Long term (current) use of anticoagulants; Z87.891 Personal history of nicotine dependence; Z86.16 Personal history of COVID-19; Z20.822 Contact with and (suspected) exposure to COVID-19
CPT/HCPCS: 0240U; 36415; 74177; 80053; 80143; 80179; 80305; 81001; 82140; 82150; 83605; 83690; 83735; 85025; 87040; 96374; 96375; 99284; J1170; J2405; Q9967

== ENCOUNTER 2025-09-12 12:54 | Emergency (ER) | payer OTHER ==
[2025-09-12 13:13] VITALS: BP 155/95; PULSE 90
== END 2025-09-12 13:48 | disposition home or self-care (01) ==
LOC: DL.ED 12:54
DX: B02.9 Zoster without complications (principal); I48.91 Unspecified atrial fibrillation; Z86.16 Personal history of COVID-19; Z79.01 Long term (current) use of anticoagulants; Z79.899 Other long term (current) drug therapy
CPT/HCPCS: 99283; A9270-GY